=== PATIENT | female | born 1995 | race Two or more races ===

== ENCOUNTER 2025-09-11 09:57 | Day surgery (SDC) | payer OTHER ==
[2025-09-01 08:03] LABS: URINE APPEARANCE Clear; URINE BILIRRUBIN Negative (NEGATIVE); URINE BLOOD Negative; URINE COLOR Yellow; URINE GLUCOSE Negative (NEGATIVE); URINE KETONE Negative (NEGATIVE); URINE LEUKOCYTE Negative; URINE NITRATE Negative; URINE PROTEIN Negative (NEGATIVE); URINE UROBILINOGEN 0.2 E.U./dl
[2025-09-01 08:05] LABS: BASO % 0.5 % (0.1-1.2); EOS # 0.16 (0.04-0.54); EOS % 2.6 % (0.7-7.0); LYMPH # 1.73 (1.18-3.74); LYMPH % 28.1 % (19.3-53.1); MEAN PLATELET VOLUME 10.60 fl (9.4-12.4); MONO # 0.63 (0.24-0.82); MONO % 10.2 % (4.7-12.5); NEUT # 3.59 (1.56-6.13); NEUT % 58.3 % (34.0-71.1); RED CELL DISTRIBUTION WIDTH 13.1 % (11.6-14.4)
[2025-09-01 08:07] LABS: URINE BACTERIA 426.5 uL (0.0-1933); URINE EPITHELIAL CELLS 13.9 uL (0.0-38.8); URINE RBC 2.9 uL (0.0-20.8); URINE WBC 4.2 uL (0.0-23.2)
[2025-09-01 08:28] LABS: URINE CAST 0.00 uL (0.0-1.40)
[2025-09-01 08:35] VITALS: BP 106/72
[2025-09-01 08:36] LABS: INR 1.02
[2025-09-01 09:05] LABS: ALT/SGPT 22.0 U/L (12-78); AST/SGOT 12.0 U/L (15-37); BILIRUBIN TOTAL 0.47 mg/dL (0.3-1.2); BUN CREA RATIO 33.0 (7.0-25.0); CREATININE SERUM 0.6 mg/dL (0.55-1.02); GFR 115.85; GLOBULINA 3.9 G/DL (2.4-3.5); GLUCOSE FASTING 89.0 mg/dL (65-100); OSMOLALITY SERUM 283.0 MOSM/KG (275-295)
[~2025-09-11] VITALS: Ht 91.4 cm; Wt 5.0 kg
[~2025-09-11 09:57] MED LIST: DEXAMETHASONE SODIUM PHOSPHATE 4 MG/ML VIAL ONE; TENORMIN25 MG PO
[2025-09-12] MEDS ORDERED: ZYRTEC10 M3 PO (22:12)
== END 2025-09-11 17:55 | disposition home or self-care (01) ==
LOC: CIR.AMB 09:57 → O/R 09:57 → SURH 09:57 → O/R 11:42 → SURH 12:30 → O/R 15:29 → SURH 17:55 → CIR.AMB 17:55
PROVIDERS: ATTEND Surgery
DX: E04.1 Nontoxic single thyroid nodule (principal)

== ENCOUNTER 2025-09-12 14:50 | Emergency (ER) | payer OTHER ==
[~2025-09-12] VITALS: Ht 160 cm; Wt 65.8 kg
[~2025-09-12 14:50] MED LIST changes: -DEXAMETHASONE SODIUM PHOSPHATE 4 MG/ML VIAL ONE
[2025-09-12 17:18] VITALS: BP 143/78; O2SAT 97
[2025-09-12] MEDS ORDERED: METHYLPREDNISOLONE SOD SUCC 125 MG VIAL IM STA (17:19)
[2025-09-12] MEDS ORDERED: DIPHENHYDRAMINE HCL 50 MG/ML VIAL 1ML IV STA (17:20)
[2025-09-12] MEDS ORDERED: METHYLPREDNISOLONE SOD SUCC 125 MG VIAL ONE (17:21)
[2025-09-12] MEDS ORDERED: DIPHENHYDRAMINE HCL 50 MG/ML VIAL 1ML ONE (17:21)
[2025-09-12] MEDS ORDERED: 0.9 % SODIUM CHLORIDE 1,000 ML IV STA (17:29)
[2025-09-12] MEDS ORDERED: FAMOTIDINE/PF 20 MG/2 ML VIAL IV STA (17:29)
[2025-09-12] MEDS ORDERED: PIPERACILLIN/TAZOBACTAM SODIUM 3.375 GM in DEXTROSE 5 % IN WATER 100 ML IV SCH (18:00)
[2025-09-12] MEDS ORDERED: PIPERACILLIN/TAZOBACTAM SODIUM 3.375 GM VIAL IV ONE (18:04)
[2025-09-12 18:18] LABS: BASO % 0.3 % (0.1-1.2); EOS # 0.07 (0.04-0.54); EOS % 0.7 % (0.7-7.0); LYMPH # 2.34 (1.18-3.74); LYMPH % 22.6 % (19.3-53.1); MEAN PLATELET VOLUME 10.40 fl (9.4-12.4); MONO # 1.16 (0.24-0.82); MONO % 11.2 % (4.7-12.5); NEUT # 6.70 (1.56-6.13); NEUT % 64.6 % (34.0-71.1); RED CELL DISTRIBUTION WIDTH 13.4 % (11.6-14.4)
[2025-09-12 18:34] LABS: URINE APPEARANCE Clear; URINE BILIRRUBIN Negative (NEGATIVE); URINE BLOOD Negative; URINE COLOR Yellow; URINE GLUCOSE Negative (NEGATIVE); URINE KETONE Negative (NEGATIVE); URINE LEUKOCYTE Negative; URINE NITRATE Negative; URINE PROTEIN Negative (NEGATIVE); URINE UROBILINOGEN 0.2 E.U./dl
[2025-09-12 18:39] LABS: URINE BACTERIA 1614.1 uL (0.0-1933); URINE EPITHELIAL CELLS 16.7 uL (0.0-38.8); URINE RBC 14.5 uL (0.0-20.8); URINE WBC 22.0 uL (0.0-23.2)
[2025-09-12 18:39] LABS: INR 1.03
[2025-09-12 18:43] LABS: ALT/SGPT 24.0 U/L (12-78); AST/SGOT 16.0 U/L (15-37); BILIRUBIN TOTAL 0.5 mg/dL (0.3-1.2); BUN CREA RATIO 11.0 (7.0-25.0); CREATININE SERUM 0.76 mg/dL (0.55-1.02); GFR 88.19; GLOBULINA 4.4 G/DL (2.4-3.5); GLUCOSE FASTING 86.0 mg/dL (65-100); OSMOLALITY SERUM 277.0 MOSM/KG (275-295)
[2025-09-12 18:47] LABS: URINE CAST 0.14 uL (0.0-1.40)
[2025-09-12 18:56] LABS: ERYTHROCYTE SEDIMENTATION RATE 33 mm/hr (0-20)
[2025-09-12] MEDS ORDERED: ZYRTEC10 M3 PO (22:12)
== END 2025-09-12 22:27 | disposition home or self-care (01) ==
LOC: ER 14:51
PROVIDERS: Physician Assistant Medical
DX: R50.9 Fever, unspecified (principal); T78.40XA Allergy, unspecified, initial encounter; R21 Rash and other nonspecific skin eruption; R06.02 Shortness of breath; R00.2 Palpitations; Z88.6 Allergy status to analgesic agent; Z91.013 Allergy to seafood